=== PATIENT | female | born 1980 | race Caucasian/White ===

== ENCOUNTER 2023-11-27 07:30 | Emergency (ER) | payer BC, SELFPAY ==
[2023-11-27 07:32] VITALS: BP 159/97
--- NOTE | 2023-11-27 08:14 | ED.GENMED ---
History of Present Illness
General
Chief Complaint: Headache
Source: patient
Exam Limitations: none
Time Seen by Provider: 11/27/23 07:37
Nursing documentation reviewed up to this point in time: agreed with
Travel History
Have you had any contact with someone who has COVID-19?: No
Do you have any symptoms of coronavirus? Fever > 100 degrees, chills, cough, shortness of breath, sore throat, loss of taste or smell, muscle aches, or headache?: No
History of Present Illness
History of Present Illness:
42-year-old female presents to the ER complaining of migraine. Patient has a history of cluster migraines. She reports years ago she had a neurologist and was on Imitrex and Topamax however she has not had a headache in years. She reports on
Monday she started with her typical migraine. She has been alternating Tylenol and ibuprofen without relief. Today she went to work but complains of light sensitivity noise sensitivity.
Patient denies any nausea vomiting. Denies any recent illness fever chills. Denies any neck pain. Denies any trauma.
Past History
Past History
ED Past Medical History: Asthma
ED Past Surgical History: Gynecological (D&C)
Social History
Tobacco: Non-smoker
Alcohol: None
Drug: None
Personal: Single
Living: with family
Employment: Student
Review of Systems
Review of Systems
Allergies reviewed?: Yes
All Other Systems: ROS reviewed and negative except as documented in HPI and ROS
Constitutional: Reports no symptoms; Denies fever or chills
EENT: Reports no symptoms
Respiratory: Reports no symptoms
Cardiac: Reports no symptoms
ABD/GI: Reports no symptoms
Musculoskeletal: Reports no symptoms; Denies neck pain
Skin: Reports no symptoms
Neurological: Reports headache; Denies dizzy, weakness or numbness
Psychiatric: Reports no symptoms
Phy Exam
General Physical Exam
General Presentation: no apparent distress
General age: appears stated age
General Skin: warm and dry
General Habitus: normal
General Mental: alert
General Hydration: appears well hydrated
ENT Exam
ENT Exam: EOMI and neck supple
Eye Exam
Eye Exam: PERRL and EOMI
Eye Exam General: PERRL: bilateral and EOM intact: bilateral
Pupil Exam: Bilateral: round and reactive
Neurological Exam
Neurological Exam: alert and oriented x3
[place] Coma Scale
Eye Opening: Spontaneous
Verbal Response: Oriented
Motor Response: Obeys Commands
GCS Total Score: 15
Musculoskeletal Exam
Musculoskeletal Exam: full ROM
Skin Exam
Skin Exam: normal color and warm/dry
Psychiatric Exam
Psychiatric Exam: normal mood/affect
Course
Orders/Labs/Results
Orders:
Orders
11/27/23 08:11
IV Insert/Care/Rem.- Treatment PRN
0.9% Sodium Chloride 1000 ml [Nss] 1,000 ml IV BOLUS
Metoclopramide [Reglan] 10 mg IV NOW STA
11/27/23 08:12
Diphenhydramine [Benadryl] 25 mg IV NOW STA
Ketorolac [Toradol] 15 mg IV NOW STA
Vital Signs
Initial and Last Documented VS:
Initial Vital Signs
Temp Pulse Resp BP Pulse Ox
98.3 F 70 16 159/97 99
11/27/23 07:32 11/27/23 07:32 11/27/23 07:32 11/27/23 07:32 11/27/23 07:32
Last Documented Vital Signs
Temp Pulse Resp BP Pulse Ox
98.3 F 70 16 159/97 99
11/27/23 07:32 11/27/23 07:32 11/27/23 07:32 11/27/23 07:32 11/27/23 07:32
MDM/Problems Addressed
Differential Diagnosis Includes:
Not limited migraine, headache, cluster headache
MDM/Problems Addressed:
Symptoms is consistent with migraine. Patient has a known history of migraines however has not had one in years. She used to have a neurologist years ago however lifted felt off at the time. Patient reports this is her typical migraine. She
presented with light, noise sensitivity. She denies any recent fevers and is afebrile here. Patient was given IV Toradol Benadryl Reglan fluids and monitor. Patient feels much better headache completely resolved. Will DC with neurology follow-up.
Chronic conditions affecting care:
History migraines
*Critical Care Note
Total Time (30-74mins, 75-104mins- exclusive of procedures): Not Applicable
ED Attending Note
-
Portions of this chart may have been created with voice recognition software.� Occasional wrong word or��sound alike� substitutions may have occurred due to the inherent limitations of voice recognition software.
Discharge Plan
Departure
Patient Disposition: Home (Routine Discharge)
Date of Disposition: 11/27/23
Time of Disposition: 10:27
Patient with high blood pressure during this ER visit?: Yes
Condition: Fair
Covid-19: Not Applicable
Discharge Problem:
migraine headache
Instructions: Headache, Adult (DC), BLOOD PRESSURE
Prescriptions:
No Action
albuterol sulfate 1 PUFF HFA aerosol inhaler
1 puff inhalation R Q4HPRN PRN (Reason: ASTHMA)
cetirizine [Zyrtec] 10 mg Tablet
10 mg PO DAILY PRN (Reason: asthma)
Referrals:
Aidan Acosta MD [Active] -
Katharine Callahan CRNP [Family Provider] -
Activity Restrictions/Additional Instructions:
Follow-up with neurology as discussed . [facility]All to make an appointment. Return if any worsening of symptoms.
Interventions
Interventions:
*Risk Screen - Suicide Last Done: 11/27/23 08:24
*General Assessment Last Done: 11/27/23 08:24
*Neglect/Abuse Screening Last Done: 11/27/23 08:24
ED- Fall Risk Assessment Last Done: 11/27/23 08:24
*ED COVID-19 Vaccine History Last Done: 11/27/23 07:32
ED- Neurological Assessment Last Done: 11/27/23 08:24
[2023-11-27] MEDS: BENADRYL 25 MG IV (08:20)
[2023-11-27] MEDS: REGLAN 10 MG IV (08:20)
[2023-11-27] MEDS: TORADOL 15 MG IV (08:20)
[2023-11-27] MEDS: NSS 1000 IV (08:21)
[2023-11-27 11:00] VITALS: BP 117/56
== END 2023-11-27 11:05 | disposition home or self-care (01) ==
LOC: EMR 07:30
PROVIDERS: EMERGENCY PHYSICIAN Student in an Organized Health Care Education/Training Program; FAMILY PHYSICIAN Nurse Practitioner
DX: G43.909 Migraine, unspecified, not intractable, without status migrainosus (principal); J45.909 Unspecified asthma, uncomplicated
CPT/HCPCS: 99282; 96374; 96375; 96361

== ENCOUNTER 2025-06-09 16:07 | Emergency (ER) | payer SELFPAY ==
[2025-06-09 16:08] VITALS: BP 146/92
--- NOTE | 2025-06-09 16:24 | ED.GENMED ---
History of Present Illness
General
Chief Complaint: Change in Mental Status
Source: patient and ambulance crew
Exam Limitations: none
Time Seen by Provider: 06/09/25 16:23
Nursing documentation reviewed up to this point in time: agreed with
History of Present Illness
History of Present Illness:
Patient is a 44-year-old female who presents to the ER for evaluation. Patient presents now awake and alert. She reports she remembers leaving work then going to the food store. She reports she talked to her sister on the phone having an
argument while in her car and remembers her sister asking her if she was okay. She felt dizzy and nauseous and remembers not being able to get her words out. The next thing she recalls is her father being at the scene and the ambulance. She
reports she felt confused in the ambulance however now' things are coming back' to her. She does not recall certain things such as her father arriving on scene.
Currently she does feel nauseous now and does have a headache. She does report that her pants are wet.
She denies any upper or lower extremity weakness.
She does not smoke. She does not drink alcohol. 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
Father here reports he received a phone call from patient's sister stating the patient was on the phone with her became unresponsive and not answering questions. Father reports when he arrived to the scene she was not in an air conditioned car eyes
open but she was not responding to him.
She does not recall even speaking with her father.
Past History
Past History
ED Past Medical History: Asthma
ED Past Surgical History: Gynecological (D&C)
Social History
Tobacco: Non-smoker
Alcohol: None
Drug: None
Personal: Single
Living: with family
Employment: Student
Phy Exam
General Physical Exam
General Presentation: no apparent distress
General age: appears stated age
General Skin: warm and dry
General Habitus: normal
General Mental: alert
General Hydration: dry mucous membranes
Eye Exam
Eye Exam: PERRL and EOMI
Eye Exam General: PERRL: bilateral and EOM intact: bilateral
Pupil Exam: Bilateral: round and reactive
Cardiovascular Exam
Cardiovascular Exam: regular rate/rhythm, no murmur and normal peripheral pulses
Pulmonary Exam
Pulmonary Exam: lungs clear and no respiratory distress
Neurological Exam
Neurological Exam: alert and oriented x3
Musculoskeletal Exam
Musculoskeletal Exam: full ROM
Skin Exam
Skin Exam: normal color and warm/dry
Psychiatric Exam
Psychiatric Exam: normal mood/affect
Course
Orders/Labs/Results
Orders:
Orders
06/09/25 16:29
Electrocardiogram (*1) Urgent
Reason for Study: Fatigue / Weakness
CT Head W/o Iv Contrast Urgent
Comment:
Reason For Exam: change in mental status
06/09/25 16:30
EKG- Treatment ONCE
06/09/25 16:33
Alcohol Urgent
Complete Blood Count/With Diff Urgent
Comprehensive Metabolic Panel Urgent
Erythrocyte Sed Rate Urgent
Comment: ADD ON
Magnesium Urgent
Urinalysis Reflex To Culture Urgent
Date Specimen was Collected: 06/09/25
Time Specimen was Collected: 16:30
Urine Drug Abuse Screen Urgent
Date Specimen was Collected: 06/09/25
Time Specimen was Collected: 16:30
Urine Microscopic Reflex Cult Urgent
Urine Culture Urgent
MUSTAPHA Source: U
Specimen Description:
Date Specimen was Collected: 06/09/25
Time Specimen was Collected: 16:30
06/09/25 16:48
Ondansetron Injectable [Zofran] 4 mg IV NOW STA
06/09/25 19:20
0.9% Sodium Chloride 1000 ml [Nss] 1,000 ml IV BOLUS
06/09/25 19:45
Levetiracetam Injectable [Keppra] 1,000 mg IV NOW STA
06/09/25 19:48
Add On- LAB Urgent
Tests Added?: sed rate, alcohol level
Abnormal Lab Results
06/09/25
16:33
WBC 4.6 L 10^3/uL
(4.8-10.8)
RBC 4.08 L 10^6/uL
(4.20-5.40)
Hct 36.4 L %
(37.0-47.0)
MCH 31.9 H pg
(27.0-31.0)
Absolute Lymphs (auto) 0.9 L 10^3/uL
(1.2-3.4)
Lymphocytes % 20.1 L %
(20.5-51.1)
Carbon Dioxide 21 L mmol/L
(22-30)
Glucose 158 H mg/dl
(70-99)
AST 44 H U/L
(14-36)
Albumin 5.2 H g/dl
(3.5-5.0)
Urine Ketones 3+ A
(Negative)
Ur Occult Blood Reflex 3+ A
(Negative)
Urine RBC 3-6 A /HPF
(0-2)
Urine Bacteria (Reflex) Moderate A
(Negative)
Urine Albumin (Reflex) 2+ A
(Neg - Trace)
06/09/25 16:33
06/09/25 16:33
Vital Signs
Initial and Last Documented VS:
Initial Vital Signs
Temp Pulse Resp BP Pulse Ox
98.4 F 96 16 146/92 96
06/09/25 16:08 06/09/25 16:08 06/09/25 16:08 06/09/25 16:08 06/09/25 16:08
Last Documented Vital Signs
Temp Pulse Resp BP Pulse Ox
98.6 F 78 16 142/94 96
06/09/25 16:50 06/09/25 18:55 06/09/25 18:55 06/09/25 18:55 06/09/25 19:23
Bottle Gauger consulted with Physician
Bottle Gauger consulted with physician?: Yes
Name of Physician Consulted: Noh
MDM/Problems Addressed
Differential Diagnosis Includes:
Not limited to syncope, seizure less likely TIA or stroke
MDM/Problems Addressed:
44-year-old female presents today for evaluation. Patient apparently was sitting in a car speaking to her sister and felt that she could not get her words out. EMS was called to scene father also presented to the scene. Father reports patient was
awake but not coherent not answering questions. Patient did not recall father being at the scene. she recalled being in the ambulance feeling confused. On arrival to the ER patient was awake and alert and oriented. She was aware that she was
confused and did recall sitting in the car not being able to get her words out. She seemed to be incontinent of urine as her pants were wet in the underwear region.
She had a headache on arrival was a little nauseous. She has no history of seizures. She has no cardiac history. She reports had an issue with Xanax years ago but has been clean. She does smoke or drink alcohol.
Patient presents awake alert with a normal neurologic exam and no deficits.
No oral tongue lacerations. .
No head injury on exam.
No acute findings /abnormality on CT head.
Urinalysis negative UDS negative
patient has been awake alert and neurologically intact here.
Case reviewed with neurology , DR Adams,who does not feel that she needs to be admitted. would recommend loading with Keppra to treat for likley seizure and discharged home with Keppra with close outpatient follow-up with neuro. patient has no
stroke risk factors she is on control she does not smoke no clotting disorder in the family .
per Dr Adams he recommend outpt follow up by DR Ileana Cade.
[place] [employer] form [place].
I did review with patient that she needed will need additional test including brain MRI/it. In addition to neurology I did encourage close outpatient with family doctor.
Patient was given a prescription for Keppra 1000 g twice a day as recommended by neurology.
Family here to take patient home
*Radiology
Radiology exam reviewed: radiology read reviewed
*Pulse Oximetry
SaO2: 96
Oxygen Mode of Delivery: Room air
Patient hypoxic: no
*EKG
Interpreted by ED Provider?: Yes
Comparison EKG: no comparison EKG present
Heart Rate: 80
Rate: normal
Rhythm: sinus
Ischemia: non-specific ST changes
*Critical Care Note
Total Time (30-74mins, 75-104mins- exclusive of procedures): Not Applicable
Patient Management
Discussion with other providers: [facility] Educator (neuro DR adams )
ED Attending Note
-
Portions of this chart may have been created with voice recognition software.� Occasional wrong word or��sound alike� substitutions may have occurred due to the inherent limitations of voice recognition software.
Discharge Plan
Departure
Patient Disposition: Home (Routine Discharge)
Date of Disposition: 06/09/25
Time of Disposition: 20:39
Patient with high blood pressure during this ER visit?: Yes
Condition: Fair
Discharge Problem:
possible seizure
Instructions: Seizures in adults - ED discharge instructions
Prescriptions:
New
levetiracetam [Keppra] 1,000 mg tablet
1,000 mg PO BID Qty: 60 0RF
No Action
cetirizine [Zyrtec] 10 mg Tablet
10 mg PO DAILY PRN (Reason: asthma)
Referrals:
Ileana Cade MD [Non-Admitting Privileges, Psychiatry]
Darryl Adams MD [Active, Neurology]
Katharine Callahan CRNP [Family Provider, General]
Activity Restrictions/Additional Instructions:
As discussed it is possible that you had a seizure today. A prescription for Keppra was sent to pharmacy take as directed.
In addition because of possible seizure you will not be able to drive until cleared by neurology. Please call neurology tomorrow to make an appointment as soon as possible. In addition you will need other testing including brain MRI and EEG. You
may also follow-up with your family doctor for this they can order this testing as well.
Return if any worsening of symptoms. Stable hydrated.
Interventions
Interventions:
*Risk Screen - Suicide Last Done: 06/09/25 16:08
*General Assessment Last Done: 06/09/25 16:08
*Neglect/Abuse Screening Last Done: 06/09/25 16:08
*ED- Fall Risk Assessment Last Done: 06/09/25 16:08
*ED COVID-19 Vaccine History Last Done: 06/09/25 16:08
ED- Pulmonary Assessment Last Done: 06/09/25 16:08
ED-Psychological Assessment Last Done: 06/09/25 16:08
ED- Neurological Assessment Last Done: 06/09/25 16:08
ED- Cardiac Assessment Last Done: 06/09/25 16:08
ED Swallowing Screen Last Done: 06/09/25 16:08
Discharge Date and Time
Print Language: URUGUAYAN
[2025-06-09 16:50] VITALS: BP 146/92
[2025-06-09 16:52] LABS: Hematocrit 36.4 % (37.0-47.0); Hemoglobin 13.0 g/dL (12.0-16.0); Mean Corp Hgb Conc. 35.7 g/dL (33.0-37.0); Mean Corpuscular Volume 89.2 fL (81.0-99.0); Nucleated Red Blood Cells % 0 %; Platelet Count 257 10^3/uL (130-400); Red Cell Dist. Width 11.9 % (11.5-14.5)
[2025-06-09 16:59] LABS: ALT (SGPT) 26 U/L (0-35); AST (SGOT) 44 U/L (14-36); Albumin 5.2 g/dl (3.5-5.0); Alkaline Phosphatase 66 U/L (38-126); Blood Urea Nitrogen 12 mg/dl (7-17); Calcium 9.8 mg/dl (8.4-10.2); Carbon Dioxide 21 mmol/L (22-30); Chloride 102 mmol/L (98-107); Estimated Creatinine Clearance 106 ml/min; Glucose 158 mg/dl (70-99); Magnesium 1.7 mg/dl (1.6-2.3); Potassium 4.2 mmol/L (3.5-5.1); Sodium 135 mmol/L (135-145); Total Protein 7.9 g/dl (6.3-8.2); eGFR > 60.00
[2025-06-09 17:00] VITALS: BP 149/90
[2025-06-09] MEDS: ZOFRAN 4 MG IV (17:03)
[2025-06-09 18:23] VITALS: BP 151/106
[2025-06-09 18:38] LABS: Urine Character Clear (Clear)
[2025-06-09 18:51] LABS: Urine Squamous Cell >30 /LPF (Few)
[2025-06-09 18:55] VITALS: BP 142/94
[2025-06-09 19:00] VITALS: BP 150/97
[2025-06-09] MEDS: KEPPRA 1000 MG IV (20:06)
[2025-06-09] MEDS: NSS 1000 IV (20:15)
== END 2025-06-09 21:48 | disposition home or self-care (01) ==
LOC: EMR 16:07
PROVIDERS: EMERGENCY PHYSICIAN Emergency Medicine; FAMILY PHYSICIAN Nurse Practitioner
DX: R41.82 Altered mental status, unspecified (principal); J45.909 Unspecified asthma, uncomplicated
CPT/HCPCS: 99284; 96374; 96375; 96361; 70450; 80053; 80306; 81003; 81015; 82077; 83735; 85025; 85652; 87086; 93005